=== PATIENT | female | born 1940 | race Caucasian/White ===

== ENCOUNTER 2017-06-26 07:45 | Observation (INO) | payer MEDICARE, OTHER ==
[2017-06-26 07:56] VITALS: BMI 25.0
--- NOTE | 2017-06-26 08:01 | PDOC ---
History of Present Illness - General Chief Complaint: Chest Pain Stated Complaint: R ARM PAIN Time Seen by Provider: 06/26/17 08:01 History Source: Patient - History of Present Illness Initial Comments: 06/26/17 08:22 76 year old female with a PMH of GERD, HTN, pre-diabetes and HLD presents to the ED c/o chest pain. Chest pain is substernal, pressure like, 5/10, intermittent lasting 2-3 minutes today and radiates down patient's R arm and started @ 5:30 this morning. Non-positional, non-pleuritic and is relieved by rest. Pain has been occurring intermittently since December 2016 and previously lasting between a few hours to 2 days. Patient presents to ED this morning because she had three episodes of increased severity, though shorter in duration. Associated shortness of breath, no lightheadedness/palpitations/ diaphoresis/nausea. Denies any h/o SCHULTZ or orthopnea however notes some h/o resolved L leg swelling last month. Recent h/o throat infection for which she is currently on Day 09/18 of Amoxicillin, and travel to [facility] (May 2017). Patient notes she takes Umu Aspirin for her high blood pressure and cannot recall the name of any other anti-hypertensive. As per EMR patient had stress testing in 12/2016 which showed apical filling defect, likely apical thinning and home medication is Lisinopril (10 mg). NKDA Surgical: denies Social: lifetime non-smoker, denies alcohol, denies recreational drugs PMD: Dr. Elmore Past History - Past Medical History Allergies/Adverse Reactions: Allergies Allergy/AdvReac Type Severity Reaction Status Date / Time No Known Allergies Allergy Verified 06/26/17 07:52 Home Medications: Ambulatory Orders Aspirin [ASA -] 81 mg PO DAILY 06/26/17 Esomeprazole Magnesium 20 mg PO DAILY 06/26/17 Ramipril 10 mg PO DAILY 06/26/17 COPD: No Diabetes: Yes GI Disorders: Yes HTN: Yes - Suicide/Smoking/Psychosocial Hx Smoking History: Never smoked Review of Systems - Review of Systems Constitutional: No: Chills, Fever HEENTM: No: Recent change in vision Respiratory: Yes: Shortness of Breath. No: Cough, Orthopnea, Wheezing Cardiac (ROS): Yes: Chest Pain, Lightheadedness. No: Palpitations, Syncope ABD/GI: No: Constipated, Diarrhea, Nausea, Vomiting : No: Burning, Dysuria *Physical Exam - Vital Signs Last Vital Signs Temp Pulse Resp BP Pulse Ox 98.4 F 82 17 152/81 99 06/26/17 07:52 06/26/17 07:52 06/26/17 07:52 06/26/17 07:52 06/26/17 07:52 - Physical Exam Comments: 06/26/17 18:11 GENERAL: Awake, alert, and fully oriented, in no acute distress HEAD: No signs of trauma EYES: PERRLA, EOMI, sclera anicteric, conjunctiva clear ENT: Auricles normal inspection, hearing grossly normal, nares patent, oropharynx clear without exudates. Moist mucosa NECK: Nontender, no stepoffs, Normal ROM, supple, no lymphadenopathy, JVD, or masses LUNGS: Breath sounds equal, clear to auscultation bilaterally. No wheezes, and no crackles HEART: Regular rate and rhythm, normal S1 and S2, no murmurs, rubs or gallops ABDOMEN: Soft, nontender, normoactive bowel sounds. No guarding, no rebound. No masses EXTREMITIES: Normal range of motion, no edema. No clubbing or cyanosis. No cords, erythema, or tenderness ED Treatment Course - LABORATORY CBC & Chemistry Diagram: 06/26/17 08:30 06/26/17 08:30 Medical Decision Making - Medical Decision Making 06/26/17 08:30 76 year old female with intermittent chest pain- intermittent for 6 months, no clear association to exertion however relieved by rest. H/o cardiac stress testing in 12/2016 with apical filling defect. VS unremarkable. Frontal diagnosis: r/o ACS, pulmonary embolism, angina, costochondritis. 06/26/17 08:46 ECG shows NSR HR 67, wiht TWI in V1,V2, aVL -- not c/w rhythm strip for chest pain. 06/26/17 09:04 Repeat ECG shows NSR HR 65 w/persistent TWI in V1,V2, aVL. 06/26/17 09:32 Troponin (-) x1, D-Dimer (-). Patient requires further cardiac evaluation including repeat echo. 06/26/17 09:32 Case d/w patient's PMD - agrees w/ POC including admission 06/26/17 09:39 Hospitalist paged for admission 06/26/17 10:47 Patient admitted to hospitalist for observation including cardiac evaluation. Patient and patient's son @ bedside counseled on POC. Will continue to monitor while in ED. *DC/Admit/Observation/Transfer Diagnosis at time of Disposition: Chest pain - Discharge Dispostion Condition at time of disposition: Fair Admit: Yes - Referrals - Patient Instructions - Post Discharge Activity
[2017-06-26 08:37] LABS: BASO % 0.8 % (0-2.0); EOS % 3.2 % (0-4.5); HEMATOCRIT 38.4 % (32.4-45.2); HEMOGLOBIN 12.5 GM/dL (10.7-15.3); LYMPH % 27.6 % (8-40); MCH 27.5 pg (25.7-33.7); MCHC 32.5 g/dl (32.0-36.0); MEAN CELL VOLUME 84.8 fl (80-96); MEAN PLT VOLUME 9.1 fl (7.5-11.1); MONO % 9.6 % (3.8-10.2); NEUT % 58.8 % (42.8-82.8); PLATELET COUNT 265 K/MM3 (134-434); RBC 4.53 M/mm3 (3.60-5.2); RDW 14.5 % (11.6-15.6); WHITE BLOOD COUNT 6.1 K/mm3 (4.0-10.0)
[2017-06-26 09:00] LABS: ALBUMIN 3.8 g/dl (3.4-5.0); ANION GAP 5 (8-16); BILIRUBIN,TOTAL 0.3 mg/dL (0.2-1.0); BLOOD UREA NITROGEN 14 mg/dL (7-18); CHLORIDE 108 mmol/L (98-107); CO2 28 mmol/L (21-32); CREATININE 0.7 mg/dL (0.55-1.02); GLUCOSE,RANDOM 155 mg/dL (74-106); POTASSIUM 4.2 mmol/L (3.5-5.1); SGOT/AST 16 U/L (15-37); SGPT/ALT 18 U/L (12-78); SODIUM 141 mmol/L (136-145); TOT PROT 7.4 g/dl (6.4-8.2)
[2017-06-26 09:03] LABS: ALK PHOS 77 U/L (45-117); N-TERMINAL BNP 296.91 pg/ml (5-450)
--- NOTE | 2017-06-26 09:03 | PDOC ---
Attending Attestation - Resident Resident Name: Rosa ElenaKendal - ED Attending Attestation I have performed the following: I have examined & evaluated the patient, The case was reviewed & discussed with the resident, I agree w/resident's findings & plan - HPI HPI: 06/26/17 08:58 76-year-old female with history of hypertension, diabetes, high cholesterol but very high functioning at baseline and very active presents with atypical chest pain since December, had 3 episodes this morning so she presents for evaluation. She was previously evaluated in December with nuclear stress test that was essentially normal, some apical filling defect consider to be apical thinning. She describes the pain as pressure-like, lasting minutes then resolving. Not necessarily exertional, she climbs a flight of stairs every day to her apartment without difficulty. No associated palpitations or cough or orthopnea. Recent travel to the [facility], returned last month, reports intermittent leg swelling question right worse than left. - Physicial Exam PE: 06/26/17 09:03 Vital signs normal Very well-appearing, asymptomatic at this time and at the time of EKG Exam is normal, puffy ankles but no pitting edema - Medical Decision Making 06/26/17 09:03 Patient seen and evaluated with the resident. I agree with the overall evaluation, assessment, and management with the following summary of visit: 76-year-old female with several risk factors for ACS presents with otherwise atypical chest pain ongoing for months, previously evaluated for this similar syndrome with nuclear stress test in December which was unremarkable. Today had 3 episodes which is new, and concerned her so she presents for evaluation. Stat EKG performed had some concerning T-wave inversions in V1 and V2, these were new compared to her stress test EKG from December. Again, she was asymptomatic during the EKG, and a stat repeat was unchanged. Overall atypical chest pain but with several risk factors for ACS and with possible EKG changes compared to December. No acute ST changes. Check labs including d-dimer EKG, chest x-ray We'll discuss with PCP, Dr. Elmore, likely observation. Heart Score/ECG Review #1 General ECG Interpretation: Sinus Rhythm, Normal Rate, Normal Intervals, No acute ischemic changes (TWI V1V2, AVL. no ST changes) Compared to previous ECG there are: Changes noted (c/w stress test EKG 12/26) #2 General ECG Interpretation: Sinus Rhythm, Normal Rate, Normal Intervals, No acute ischemic changes (unchanged TWi V1V2, AVL)
--- NOTE | 2017-06-26 14:08 | HP ---
CHIEF COMPLAINT:chest pain PCP:Unclear, Dr. Everett(listed on pt's insurance card) office does not have a record for this patient. [facility] has Dr. Pham as prescribing physician , Rx bottle for ramipril has Dr. Garcia as prescribing physician. Patient says she goes to [address] [place] [address] for care. HISTORY OF PRESENT ILLNESS: 76 yr old hebrew speaking woman with DM II, HTN, hx of gastritis presents with worsening intermittent chest pain for past 6 months. This morning she had two episodes where the pain was 10/10 lasting 5-10minutes while she was sitting, it was squeezing in nature, substernal, non radiating, it self-resolved. When she had these episodes initially in Dec 2016, she underwent a stress test( at [facility]) that was negative. EKG at that time was negative for twi. She also underwent an endoscopy and colonoscopy in January at [facility] that showed gastritis, negative for polyps/masses. No change in exercise tolerance, able to climb stairs and walk several blocks without difficulty. She fell 2 months ago when standing up from a sitting position and says she has swelling in her right ankle at times. ER course was notable for: (1) ekg with new twi (2) 1st trop negative (3)HBa1c 6.9 Recent Travel: [place] in March 2017 PAST MEDICAL HISTORY: HTN DM II, not on medications. [facility] has an rx for metformin that was never picked up PAST SURGICAL HISTORY: denies Social History: Smoking:denies Alcohol:denies Drugs: denies Family History: daughter with breast cancer dx'd age 55, mother with unknown heart disease requiring "machine" Allergies No Known Allergies Allergy (Verified 06/26/17 07:52) HOME MEDICATIONS: Home Medications Medication Instructions Recorded Aspirin [ASA -] 81 mg PO DAILY 06/26/17 Esomeprazole Magnesium 20 mg PO DAILY 06/26/17 Ramipril 10 mg PO DAILY 06/26/17 REVIEW OF SYSTEMS CONSTITUTIONAL: Present: intentional weight loss 5lbs in 3 months Absent: fever, chills, diaphoresis, generalized weakness, malaise, loss of appetite HEENT: Absent: rhinorrhea, nasal congestion, throat pain, throat swelling, difficulty swallowing, mouth swelling, visual changes CARDIOVASCULAR: Present:chest pain, Absent: syncope, palpitations, irregular heart rate, lightheadedness, peripheral edema RESPIRATORY: Absent: cough, shortness of breath, dyspnea with exertion, orthopnea, wheezing, stridor, hemoptysis GASTROINTESTINAL: Absent: abdominal pain, abdominal distension, nausea, vomiting, diarrhea, constipation, melena, hematochezia GENITOURINARY: Absent: dysuria, frequency, urgency, hesitancy, hematuria MUSCULOSKELETAL: Absent: myalgia, arthralgia, joint swelling, back pain, neck pain SKIN: Absent: rash, itching, pallor ENDOCRINE: Absent: unexplained weight gain, unexplained weight loss, heat intolerance, cold intolerance NEUROLOGIC: Present:dizziness intermittent lasting few seconds during chest pain Absent: headache, focal weakness or paresthesias, unsteady gait, seizure, mental status changes, bladder or bowel incontinence PHYSICAL EXAMINATION Vital Signs - 24 hr 06/26/17 06/26/17 06/26/17 07:52 08:31 13:08 Temperature 98.4 F Pulse Rate 82 72 Respiratory 17 18 Rate Blood Pressure 152/81 181/92 O2 Sat by Pulse 99 98 100 Oximetry (%) 06/26/17 13:59 Temperature 98.2 F Pulse Rate 89 Respiratory 18 Rate Blood Pressure 171/80 O2 Sat by Pulse Oximetry (%) GENERAL: Awake, alert, and fully oriented, in no acute distress. HEAD: Normal with no signs of trauma. EYES: Pupils equal, round and reactive to light, extraocular movements intact, sclera anicteric, conjunctiva clear. No lid lag. EARS, NOSE, THROAT: Ears normal, nares patent, oropharynx clear without exudates. Moist mucous membranes. NECK: Normal range of motion, supple without lymphadenopathy, JVD, or masses. LUNGS: Breath sounds equal, clear to auscultation bilaterally. No wheezes, and no crackles. No accessory muscle use. HEART: Regular rate and rhythm, normal S1 and S2 without murmur, rub or gallop. ABDOMEN: Soft, nontender, not distended, normoactive bowel sounds, no guarding, no rebound, no masses. No hepatomegaly or splenomegaly. MUSCULOSKELETAL: Normal range of motion at all joints. No bony deformities or tenderness. No CVA tenderness. UPPER EXTREMITIES: 2+ radial pulses, warm, well-perfused. No cyanosis. No clubbing. No peripheral edema. LOWER EXTREMITIES: 2+ pDP ulses, warm, well-perfused. No calf tenderness. No peripheral edema. NEUROLOGICAL: Cranial nerves II-XII intact. Normal speech. 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 PSYCHIATRIC: Cooperative. Good eye contact. Appropriate mood and affect. SKIN: Warm, dry, normal turgor, no rashes or lesions noted, normal capillary refill. Laboratory Results - last 24 hr 06/26/17 06/26/17 06/26/17 08:30 08:30 08:30 WBC 6.1 RBC 4.53 Hgb 12.5 Hct 38.4 MCV 84.8 MCH 27.5 MCHC 32.5 RDW 14.5 Plt Count 265 MPV 9.1 Neutrophils % 58.8 Lymphocytes % 27.6 Monocytes % 9.6 Eosinophils % 3.2 Basophils % 0.8 D-Dimer Sodium 141 Potassium 4.2 Chloride 108 H Carbon Dioxide 28 Anion Gap 5 L BUN 14 Creatinine 0.7 Creat Clearance w eGFR > 60 POC Glucometer Random Glucose 155 H Hemoglobin A1c % 6.9 H Calcium 9.0 Total Bilirubin 0.3 AST 16 ALT 18 Alkaline Phosphatase 77 Creatine Kinase 70 Troponin I < 0.02 B-Natriuretic Peptide 296.91 Total Protein 7.4 Albumin 3.8 06/26/17 06/26/17 09:00 09:31 WBC RBC Hgb Hct MCV MCH MCHC RDW Plt Count MPV Neutrophils % Lymphocytes % Monocytes % Eosinophils % Basophils % D-Dimer 391 Sodium Potassium Chloride Carbon Dioxide Anion Gap BUN Creatinine Creat Clearance w eGFR POC Glucometer 107.49467 Random Glucose Hemoglobin A1c % Calcium Total Bilirubin AST ALT Alkaline Phosphatase Creatine Kinase Troponin I B-Natriuretic Peptide Total Protein Albumin ASSESSMENT/PLAN: 76 yr old woman with HTN and DM II presents wth atypical chest pain placed on observation for further evaluation. #Atypical chest pain, heart score 4 -telemetry monitoring to r/o arrhythmia, repeat EKG in the morning to evaluate TWI -given continued chest pain that is now worsening and previous negative stress test, will request cardiology evaluation for risk stratification for repeat stress test or cardiac cath -trend troponins - ASA 81mg daily - consult: dr. Black #DM II - HBA1c 6.9% - BGM ACHS - NISS - defer oral hypoglycemics during hospitalization, may need rxs at discharge #HTN - uncontrolled - start home dose of ramipril 5mg po daily, may require titration up #Gastritis - continue nexium 20 mg po daily #DVT: lovenox 40subq #Diet: low Na/diabetic diet Visit type - Emergency Visit Emergency Visit: Yes ED Registration Date: 06/26/17 Care time: The patient presented to the Emergency Department on the above date and was hospitalized for further evaluation of their emergent condition. - New Patient This patient is new to me today: Yes Date on this admission: 06/26/17 - Critical Care Critical Care patient: No Hospitalist Screening - Colonoscopy Questionnaire Colonoscopy Questionnaire: Colonoscopy Questionnaire - Patient: 50 - 75 years old and never had a screening colonoscopy: Unknown History of colon or rectal polyps, or CA: Unknown History of IBD, Crohn's disease or UC: Unknown History of abdominal radiation therapy as a child: Unknown - Relative: 1 with colon or rectal CA, or polyps at age 60 or younger: Unknown Colon or rectal CA diagnosed at age 45 or younger: Unknown Multiple relatives with colon or rectal CA: Unknown - Outcome: Screening Result: Negative Screen
--- NOTE | 2017-06-26 14:47 | CON.CARD ---
Consult Consult Specialty:: Cardiology - History of Present Illness Chief Complaint: chest pain History of Present Illness: 76-year-old female with history of hypertension, diabetes, high cholesterol but very high functioning at baseline and very active presents with atypical chest pain since December, had 3 episodes this morning so she presents for evaluation. She was previously evaluated in December with nuclear stress test that was essentially normal, some apical filling defect consider to be apical thinning. She describes the pain as pressure-like, lasting minutes then resolving. Not necessarily exertional, she climbs a flight of stairs every day to her apartment without difficulty. No associated palpitations or cough or orthopnea. Recent travel to the [facility], returned last month, reports intermittent leg swelling question right worse than left. - Smoking History Smoking history: Never smoked Home Medications - Allergies Allergies/Adverse Reactions: Allergies Allergy/AdvReac Type Severity Reaction Status Date / Time No Known Allergies Allergy Verified 06/26/17 07:52 - Home Medications Home Medications: Ambulatory Orders Aspirin [ASA -] 81 mg PO DAILY 06/26/17 Esomeprazole Magnesium 20 mg PO DAILY 06/26/17 Ramipril 10 mg PO DAILY 06/26/17 Review of Systems - Review of Systems Constitutional: reports: No Symptoms Eyes: reports: No Symptoms HENT: reports: No Symptoms Neck: reports: No Symptoms Cardiovascular: reports: No Symptoms Gastrointestinal: reports: No Symptoms Genitourinary: reports: No Symptoms Breasts: reports: No Symptoms Reported Musculoskeletal: reports: No Symptoms Integumentary: reports: No Symptoms Neurological: reports: No Symptoms Endocrine: reports: No Symptoms Hematology/Lymphatic: reports: No Symptoms Psychiatric: reports: No Symptoms Vital Signs: Vital Signs Temperature 98.2 F 06/26/17 13:59 Pulse Rate 89 06/26/17 13:59 Respiratory Rate 18 06/26/17 13:59 Blood Pressure 171/80 06/26/17 13:59 O2 Sat by Pulse Oximetry (%) 100 06/26/17 13:08 Constitutional: Yes: Well Nourished, No Distress, Calm Eyes: Yes: WNL, Conjunctiva Clear, EOM Intact HENT: Yes: WNL, Atraumatic, Normocephalic Neck: Yes: WNL, Supple, Trachea Midline Respiratory: Yes: WNL, Regular, CTA Bilaterally Gastrointestinal: Yes: WNL, Normal Bowel Sounds Renal/: Yes: WNL Cardiovascular: Yes: WNL, Regular Rate and Rhythm Musculoskeletal: Yes: WNL Extremities: Yes: WNL Integumentary: Yes: WNL Neurological: Yes: WNL, Alert, Oriented ...Motor Strength: WNL Psychiatric: Yes: WNL, Alert, Oriented - Other Data Labs, Other Data: CBC, BMP 06/26/17 08:30 06/26/17 08:30 Troponin, BNP 06/26/17 08:30 Troponin I < 0.02 B-Natriuretic Peptide 296.91 Troponin, BNP 06/26/17 08:30 Troponin I < 0.02 B-Natriuretic Peptide 296.91 Imaging - Results Chest X-ray: Image Reviewed (nild elevation l diaphragm) EKG: Image Reviewed (sr nonspec rep abn) Problem List - Problems (1) Chest pain Code(s): R07.9 - CHEST PAIN, UNSPECIFIED Assessment/Plan cp sx neg mibi Dec 2015 htn hlp gerd plan r/o mi EST echo
[2017-06-26 15:21] LABS: CHOLESTEROL 154 mg/dL (50-200); HDL CHOLESTEROL 60 mg/dL (40-60); LDL CHOLESTEROL (ONLY SJRH) 83 mg/dL (5-100); TRIGLYCERIDES 85 mg/dL (35-160)
[2017-06-26] MEDS ORDERED: PATIENT'S OWN MEDICATION (NON-FORMULARY) (Ramipril [Ramipril] 10 MG) PO SCH (16:00)
[2017-06-26] MEDS ORDERED: RAMIPRIL 5 MG CAPSULE (FP) PO ONE (16:00)
--- NOTE | 2017-06-26 16:49 | EKG ---
Test Reason : Blood Pressure : / mmHG Vent. Rate : 065 BPM Atrial Rate : 065 BPM P-R Int : 182 ms QRS Dur : 088 ms QT Int : 408 ms P-R-T Axes : 046 -07 076 degrees QTc Int : 424 ms POOR DATA QUALITY, INTERPRETATION MAY BE ADVERSELY AFFECTED NORMAL SINUS RHYTHM MINIMAL VOLTAGE CRITERIA FOR LVH, MAY BE NORMAL VARIANT BORDERLINE ECG NO PREVIOUS ECGS AVAILABLE Confirmed by MD Lonnie, Remigio ([id number]) on 06/26/2017 4:48:59 PM Referred By: Confirmed By:Remigio Fleming MD
--- NOTE | 2017-06-26 18:33 | PN ---
Teaching Attending Note Name of Resident: Maeve Lanier ATTENDING PHYSICIAN STATEMENT I saw and evaluated the patient. I reviewed the resident's note and discussed the case with the resident. I agree with the resident's findings and plan as documented. SUBJECTIVE: This is a 76 year old woman with a history of HTN, type 2 DM, gastritis who comes to the ED complaining of chest pain on and off for 6 months. This morning she had two episodes which she describes as 10 out of 10, squeezing, substernal, and non-radiating. Each episode occurred at rest, lasted 5-10 minutes, and resolved spontaneously. She had a nuclear stress test in 2016 which showed a small apical defect thought to be apical thinning. OBJECTIVE: Vital Signs Period Temp Pulse Resp BP Sys/Duque Pulse Ox Last 24 Hr 98.2 F-98.4 F 72-89 16-18 152-181/80-92 98-100 HEART: S1S2, RRR LUNGS: Clear ABDOMEN: Soft, non-tender, non-distended, normal BS EXTREMITIES: No edema Laboratory Tests 06/26/17 06/26/17 06/26/17 07:00 08:30 08:30 WBC 6.1 RBC 4.53 Hgb 12.5 Hct 38.4 MCV 84.8 MCH 27.5 MCHC 32.5 RDW 14.5 Plt Count 265 MPV 9.1 Neutrophils % 58.8 Lymphocytes % 27.6 Monocytes % 9.6 Eosinophils % 3.2 Basophils % 0.8 D-Dimer Sodium 141 Potassium 4.2 Chloride 108 H Carbon Dioxide 28 Anion Gap 5 L BUN 14 Creatinine 0.7 Creat Clearance w eGFR > 60 POC Glucometer Random Glucose 155 H Hemoglobin A1c % Calcium 9.0 Total Bilirubin 0.3 AST 16 ALT 18 Alkaline Phosphatase 77 Creatine Kinase 70 Troponin I < 0.02 B-Natriuretic Peptide 296.91 Total Protein 7.4 Albumin 3.8 Triglycerides Cancelled 85 Cholesterol Cancelled 154 Total LDL Cholesterol Cancelled 83 HDL Cholesterol Cancelled 60 TSH Cancelled 1.71 06/26/17 06/26/17 06/26/17 08:30 09:00 09:31 WBC RBC Hgb Hct MCV MCH MCHC RDW Plt Count MPV Neutrophils % Lymphocytes % Monocytes % Eosinophils % Basophils % D-Dimer 391 Sodium Potassium Chloride Carbon Dioxide Anion Gap BUN Creatinine Creat Clearance w eGFR POC Glucometer 107.86046 Random Glucose Hemoglobin A1c % 6.9 H Calcium Total Bilirubin AST ALT Alkaline Phosphatase Creatine Kinase Troponin I B-Natriuretic Peptide Total Protein Albumin Triglycerides Cholesterol Total LDL Cholesterol HDL Cholesterol TSH 06/26/17 06/26/17 15:20 16:50 WBC RBC Hgb Hct MCV MCH MCHC RDW Plt Count MPV Neutrophils % Lymphocytes % Monocytes % Eosinophils % Basophils % D-Dimer Sodium Potassium Chloride Carbon Dioxide Anion Gap BUN Creatinine Creat Clearance w eGFR POC Glucometer 136 Random Glucose Hemoglobin A1c % Calcium Total Bilirubin AST ALT Alkaline Phosphatase Creatine Kinase 57 Troponin I < 0.02 B-Natriuretic Peptide Total Protein Albumin Triglycerides Cholesterol Total LDL Cholesterol HDL Cholesterol TSH Home Medications Medication Instructions Recorded Aspirin [ASA -] 81 mg PO DAILY 06/26/17 Esomeprazole Magnesium 20 mg PO DAILY 06/26/17 Ramipril 10 mg PO DAILY 06/26/17 ASSESSMENT AND PLAN: This is a 76 year old woman with a history of HTN, type 2 DM, gastritis who presented to the ED with chest pain on and off for 6 months. 1. Chest pain, atypical - Has T wave inversions on EKG, new since 12/2016 - Observe on telemetry - Continue aspirin - Serial troponins - Echocardiogram - Cardiology consult 2. HTN - Continue Altace 3. Type 2 DM - Fingersticks with Novolog sliding scale 4. Gastritis - Continue Nexium
[2017-06-26] MEDS: INSULIN SLIDING SCALE (NOVOLOG) 1 VIAL SQ SCH (22:26)
[2017-06-27] MEDS: INSULIN SLIDING SCALE (NOVOLOG) 1 VIAL SQ SCH ×4 (06:15→22:33)
[2017-06-27] MEDS: ENOXAPARIN NA (PORCINE) 40 MG/0.4 ML DISP.SYRIN SQ SCH (09:16)
[2017-06-27] MEDS: RAMIPRIL 5 MG CAPSULE (FP) PO SCH (09:17)
[2017-06-27] MEDS: ASPIRIN 81 MG CHEWABLE TABLETS PO SCH (09:17)
[2017-06-27] MEDS: PANTOPRAZOLE 20 MG TABLET (FP) PO SCH (09:17)
--- NOTE | 2017-06-27 09:29 | EKG ---
Test Reason : Blood Pressure : / mmHG Vent. Rate : 067 BPM Atrial Rate : 067 BPM P-R Int : 186 ms QRS Dur : 096 ms QT Int : 418 ms P-R-T Axes : 049 011 085 degrees QTc Int : 441 ms NORMAL SINUS RHYTHM NONSPECIFIC T WAVE ABNORMALITY ABNORMAL ECG NO PREVIOUS ECGS AVAILABLE Confirmed by ANNA MORENO, KENNA ([id number]) on 06/27/2017 9:29:44 AM Referred By: Confirmed By:KENNA CASTILLO MD
--- NOTE | 2017-06-27 10:58 | PN ---
Progress Note, Physician History of Present Illness: 76-year-old female with history of hypertension, diabetes, high cholesterol but very high functioning at baseline and very active presents with atypical chest pain since December, had 3 episodes this morning so she presents for evaluation. She was previously evaluated in December with nuclear stress test that was essentially normal, some apical filling defect consider to be apical thinning. She describes the pain as pressure-like, lasting minutes then resolving. Not necessarily exertional, she climbs a flight of stairs every day to her apartment without difficulty. No associated palpitations or cough or orthopnea. Recent travel to the [place], returned last month, reports intermittent leg swelling question right worse than left. - Current Medication List Current Medications: Active Medications Aspirin (Asa -) 81 mg PO DAILY [facility] Last Admin: 06/27/17 09:17 Dose: 81 mg Enoxaparin Sodium (Lovenox -) 40 mg SQ DAILY [facility] Last Admin: 06/27/17 09:16 Dose: 40 mg Insulin Aspart (Novolog Vial Sliding Scale -) 1 vial SQ ACHS [facility] PRN Reason: Protocol Last Admin: 06/27/17 06:15 Dose: Not Given Pantoprazole Sodium (Protonix -) 20 mg PO DAILY [facility] Last Admin: 06/27/17 09:17 Dose: 20 mg Ramipril (Altace -) 10 mg PO DAILY [facility] Last Admin: 06/27/17 09:17 Dose: 10 mg - Objective Vital Signs: Vital Signs Temperature 98 F 06/27/17 05:22 Pulse Rate 91 H 06/27/17 10:00 Respiratory Rate 20 06/27/17 10:19 Blood Pressure 109/73 06/27/17 10:00 O2 Sat by Pulse Oximetry (%) 98 06/27/17 10:19 Eyes: Yes: WNL, Conjunctiva Clear, EOM Intact HENT: Yes: WNL, Atraumatic, Normocephalic Neck: Yes: WNL, Supple, Trachea Midline Cardiovascular: Yes: WNL, Regular Rate and Rhythm Respiratory: Yes: WNL, Regular, CTA Bilaterally Gastrointestinal: Yes: WNL, Normal Bowel Sounds Genitourinary: Yes: WNL Musculoskeletal: Yes: WNL Extremities: Yes: WNL Edema: No Integumentary: Yes: WNL Neurological: Yes: WNL, Alert, Oriented ...Motor Strength: WNL Psychiatric: Yes: WNL Labs: CBC, BMP 06/26/17 08:30 06/26/17 08:30 Problem List - Problems (1) Chest pain Code(s): R07.9 - CHEST PAIN, UNSPECIFIED Assessment/Plan cp sx neg mibi Dec 2015 htn hlp dm gerd EST today nondiagnostic -would recommend EST MIBI plan keep ldl below 70 mg/dl asa EST MIBI
--- NOTE | 2017-06-27 11:44 | EKG ---
Test Reason : Blood Pressure : / mmHG Vent. Rate : 067 BPM Atrial Rate : 067 BPM P-R Int : 208 ms QRS Dur : 086 ms QT Int : 420 ms P-R-T Axes : 057 005 092 degrees QTc Int : 443 ms NORMAL SINUS RHYTHM T WAVE ABNORMALITY, CONSIDER ANTEROLATERAL ISCHEMIA ABNORMAL ECG WHEN COMPARED WITH ECG OF 26-JUN-2017 08:48, NO SIGNIFICANT CHANGE WAS FOUND Confirmed by ANNA MORENO, KENNA ([id number]) on 06/27/2017 11:44:25 AM Referred By: Julia DAVIS Confirmed By:KENNA CASTILLO MD
--- NOTE | 2017-06-27 13:19 | TRE ---
Protocol Name : AURE Max Work Load (METS*10) : 46 Time In Exercise Phase : 00:03:00 Max. Systolic BP : 180 mmHg Max Diastolic BP : 82 mmHg Max Heart Rate : 123 BPM Max Predicted Heart Rate : 143 BPM Attending Physician : DR. CASTILLO Reason For Termination : Target Heart Rate Achieved Reason for Test : CP Stress Protocol : AURE Rest HR : 90 BPM PeakEx METs : 4.6 METS Recovery ECG Response (OLD) : Diagnosis : TDS motion artifacts baseline EKG nsr no ischemic symptoms at peak exercise 1.[address] segments depressions in leads V4-V5 Nondiagnostic EST Recommend imaging stress tets Confirmed by ANNA MORENO, KENNA ([id number]) on 06/27/2017 1:18:55 PM
--- NOTE | 2017-06-27 15:58 | PN ---
Physical Exam: SUBJECTIVE: Patient seen and examined No acute events overnight. Patient denies any more chest pain. Had episodes of pvc/nsvt on monitor. OBJECTIVE: Vital Signs Period Temp Pulse Resp BP Sys/Duque Pulse Ox Last 24 Hr 97.7 F-98.9 F 65-91 18-20 109-177/70-80 98-98 GENERAL: Awake, alert, and fully oriented, in no acute distress. HEENT: Normal with no signs of trauma. Extraocular movements intact, sclera anicteric, conjunctiva clear. No lid lag. Oropharynx clear without exudates. Moist mucous membranes. NECK: Normal range of motion, supple without lymphadenopathy, JVD, or masses. LUNGS: Breath sounds equal, clear to auscultation bilaterally. No wheezes, and no crackles. No accessory muscle use. HEART: Regular rate and rhythm, normal S1 and S2 without murmur, rub or gallop. ABDOMEN: Soft, nontender, not distended, normoactive bowel sounds, no guarding, no rebound, no masses. No hepatomegaly or splenomegaly. MUSCULOSKELETAL: Normal range of motion at all joints. No bony deformities or tenderness. No CVA tenderness. UPPER EXTREMITIES: 2+ radial pulses, warm, well-perfused. No cyanosis. No clubbing. No peripheral edema. LOWER EXTREMITIES: 2+ DP ulses, warm, well-perfused. No calf tenderness. No peripheral edema. NEUROLOGICAL: Cranial nerves II-XII intact. Normal speech. facial symmetry, 5/ 5 b/l hand hat block maker, 5/5 biceps/triceps/shoulder/hip/knee extension and felxion, dorsi-plantar flexion. PSYCHIATRIC: Cooperative. Good eye contact. Appropriate mood and affect. SKIN: Warm, dry, normal turgor, no rashes or lesions noted, normal capillary refill. Laboratory Results - last 24 hr 06/26/17 06/26/17 06/26/17 15:20 16:50 21:19 POC Glucometer 136 150 Creatine Kinase 57 Troponin I < 0.02 06/26/17 06/27/17 06/27/17 22:00 05:35 11:14 POC Glucometer 116 155 Creatine Kinase 57 Troponin I < 0.02 Active Medications Generic Name Dose Route Start Last Admin Trade Name Freq PRN Reason Stop Dose Admin Aspirin 81 mg 06/27/17 10:00 06/27/17 09:17 Asa - PO 81 mg DAILY [facility] Administration Atorvastatin Calcium 10 mg 06/27/17 22:00 Lipitor - PO HS [facility] Enoxaparin Sodium 40 mg 06/27/17 10:00 06/27/17 09:16 Lovenox - SQ 40 mg DAILY [facility] Administration Insulin Aspart 1 vial 06/26/17 22:30 06/27/17 12:04 Novolog Vial Sliding Scale - SQ Not Given [facility] Protocol Pantoprazole Sodium 20 mg 06/27/17 10:00 06/27/17 09:17 Protonix - PO 20 mg DAILY [facility] Administration Ramipril 10 mg 06/27/17 10:00 06/27/17 09:17 Altace - PO 10 mg DAILY [facility] Administration ASSESSMENT/PLAN: 76 yr old f with HTN and type 2 DM presented with atypical chest pain presented for further evaluation #Atypical chest pain, heart score 4 -Continue telemetry monitoring -Trops x -3 -ASA 81 mg daily -Stress test nondiagnostic, recommend imaging stress test-- EST MIBI - consult: Dr. Black #DM II - HBA1c 6.9% - BGM ACHS - NISS ACHS - hold oral hypoglycemics, will restart metformin on d/c #HTN - uncontrolled - Continue Ramipril 10 mg po daily #HLD -Lipitor 10 mg po hs #Gastritis - continue protonix 20 mg po daily #FEN/GI -no ivf -wnl -low na/diabetic diet #DVT ppx: lovenox 40subq Visit type - Emergency Visit Emergency Visit: Yes ED Registration Date: 06/26/17 Care time: The patient presented to the Emergency Department on the above date and was hospitalized for further evaluation of their emergent condition. - New Patient This patient is new to me today: Yes Date on this admission: 06/27/17 - Critical Care Critical Care patient: No
--- NOTE | 2017-06-27 18:00 | PN ---
Teaching Attending Note Name of Resident: Rishi Laguna ATTENDING PHYSICIAN STATEMENT I saw and evaluated the patient. I reviewed the resident's note and discussed the case with the resident. I agree with the resident's findings and plan as documented. SUBJECTIVE: no fever or chills , denies any abd pain . recurrent CP in house ( seconds to min ) even at rest. vague description of her sx . OBJECTIVE: NAD CV: RRR, NO JVD Lungs: CTAB Ext: no edema ASSESSMENT AND PLAN: 76 y/o lady with h/o HTN, Dm , gastritis , and other medical problems who presented with CP 1- CP: r/o angina due to her risk factors . EKG reviewed. EST not diagnostic - nuclear stress in am - tele reviewed . PVCs - statin added as LDL 83 . 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
[2017-06-27] MEDS ORDERED: ATORVASTATIN CA 10 MG TABLET (FP) PO SCH (22:00)
[2017-06-28] MEDS: INSULIN SLIDING SCALE (NOVOLOG) 1 VIAL SQ SCH ×2 (06:39→13:01)
--- NOTE | 2017-06-28 10:06 | PN ---
Progress Note, Physician History of Present Illness: 76-year-old female with history of hypertension, diabetes, high cholesterol but very high functioning at baseline and very active presents with atypical chest pain since December, had 3 episodes this morning so she presents for evaluation. She was previously evaluated in December with nuclear stress test that was essentially normal, some apical filling defect consider to be apical thinning. She describes the pain as pressure-like, lasting minutes then resolving. Not necessarily exertional, she climbs a flight of stairs every day to her apartment without difficulty. No associated palpitations or cough or orthopnea. Recent travel to the [place], returned last month, reports intermittent leg swelling question right worse than left. - Current Medication List Current Medications: Active Medications Aspirin (Asa -) 81 mg PO DAILY [facility] Last Admin: 06/27/17 09:17 Dose: 81 mg Atorvastatin Calcium (Lipitor -) 10 mg PO HS [facility] Last Admin: 06/27/17 22:33 Dose: 10 mg Enoxaparin Sodium (Lovenox -) 40 mg SQ DAILY [facility] Last Admin: 06/27/17 09:16 Dose: 40 mg Insulin Aspart (Novolog Vial Sliding Scale -) 1 vial SQ [facility] PRN Reason: Protocol Last Admin: 06/28/17 06:39 Dose: Not Given Pantoprazole Sodium (Protonix -) 20 mg PO DAILY [facility] Last Admin: 06/27/17 09:17 Dose: 20 mg Ramipril (Altace -) 10 mg PO DAILY [facility] Last Admin: 06/27/17 09:17 Dose: 10 mg - Objective Vital Signs: Vital Signs Temperature 98.3 F 06/28/17 05:00 Pulse Rate 63 06/28/17 05:00 Respiratory Rate 20 06/28/17 05:00 Blood Pressure 154/70 06/28/17 05:00 O2 Sat by Pulse Oximetry (%) 98 06/28/17 02:00 Eyes: Yes: WNL, Conjunctiva Clear, EOM Intact HENT: Yes: WNL, Atraumatic, Normocephalic Neck: Yes: WNL, Supple, Trachea Midline Cardiovascular: Yes: WNL, Regular Rate and Rhythm Respiratory: Yes: WNL, Regular, CTA Bilaterally Gastrointestinal: Yes: WNL, Normal Bowel Sounds Genitourinary: Yes: WNL Musculoskeletal: Yes: WNL Extremities: Yes: WNL Edema: No Integumentary: Yes: WNL Neurological: Yes: WNL, Alert, Oriented ...Motor Strength: WNL Psychiatric: Yes: WNL Labs: CBC, BMP 06/26/17 08:30 06/26/17 08:30 Problem List - Problems (1) Chest pain Code(s): R07.9 - CHEST PAIN, UNSPECIFIED Assessment/Plan cp sx neg mibi Dec 2015 htn hlp dm gerd EST today nondiagnostic -would recommend EST MIBI plan keep ldl below 70 mg/dl asa awaiting EST MIBI
[2017-06-28] MEDS: ASPIRIN 81 MG CHEWABLE TABLETS PO SCH (10:50)
[2017-06-28] MEDS: ENOXAPARIN NA (PORCINE) 40 MG/0.4 ML DISP.SYRIN SQ SCH (10:50)
[2017-06-28] MEDS: PANTOPRAZOLE 20 MG TABLET (FP) PO SCH (10:50)
[2017-06-28] MEDS: RAMIPRIL 5 MG CAPSULE (FP) PO SCH (10:50)
--- NOTE | 2017-06-28 14:44 | PN ---
Teaching Attending Note Name of Resident: Rishi Laguna ATTENDING PHYSICIAN STATEMENT I saw and evaluated the patient. I reviewed the resident's note and discussed the case with the resident. I agree with the resident's findings and plan as documented. SUBJECTIVE: no fever or chills , cont to have intermittent cp that lasts fro 5-10 min . OBJECTIVE: NAD CV: RRR, NO JVD Lungs: CTAB Ext: no edema ASSESSMENT AND PLAN: 76 y/o lady with h/o HTN, Dm , gastritis , and other medical problems who presented with CP 1- CP: unclear etiology. nuclear stres neg . - tele reviewed . PVCs - pt admitted to not using her statin at home. 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 refer to resident clinic dc home , d/w her and her son with the help of OSMANI Walsh for Armenian translation
[2017-06-28 15:01] VITALS: BP 128/71; PULSE 90; TEMP 97.4
--- NOTE | 2017-06-28 15:43 | DS ---
Physical Exam: Selected Entries 06/28/17 06/28/17 10:00 15:00 Temperature 97.4 F L Pulse Rate 90 Respiratory 18 Rate Blood Pressure 128/71 O2 Sat by Pulse 98 Oximetry (%) Oxygen Delivery Room Air Method Laboratory Tests 06/26/17 06/26/17 06/26/17 08:30 08:30 08:30 WBC 6.1 Hgb 12.5 Hct 38.4 Plt Count 265 D-Dimer Sodium 141 Potassium 4.2 Chloride 108 H Carbon Dioxide 28 Anion Gap 5 L BUN 14 Creatinine 0.7 Random Glucose 155 H Hemoglobin A1c % 6.9 H Creatine Kinase Troponin I Triglycerides 85 Cholesterol 154 TSH 1.71 06/26/17 06/26/17 06/26/17 09:00 15:20 22:00 WBC Hgb Hct Plt Count D-Dimer 391 Sodium Potassium Chloride Carbon Dioxide Anion Gap BUN Creatinine Random Glucose Hemoglobin A1c % Creatine Kinase 57 Troponin I < 0.02 < 0.02 Triglycerides Cholesterol TSH 06/26 ekg- NSR 06/27 Exercise stress test- tds motion artifcats, no ischemic sx, st segments depresion in v4-v5, non diagnostic recommend imaging stress test 06/27 Echo - Impaired lv relaxation, ef 65%, otherwise no abnormalities 06/27 nuclear perfusion scan - no ischemia, normal lvef HOSPITAL COURSE: Date of Admission:06/26/17 Date of Discharge: 06/28/17 76 yr old guatemalan speaking woman with DM II, HTN, hx of gastritis presents with worsening intermittent chest pain for past 6 months admitted for atypical chest pain/ R.o acs. Patients trops were negative x 3. She underwent exercise/nuclear stress test (results above). Patient will f/u with pcp and pumpman within 1 week. Patient started on lipitor 10, metformin 500 mg, and her ramipril increased to 10 mg from 5 mg while in hospital. She will continue her home dose of aspirin and nexium. Minutes to complete discharge: 36 Discharge Summary Reason For Visit: ACUTE ELECTROCARDIOGRAPHY CHANGES Current Active Problems Chest pain (Acute) Diabetes mellitus (Chronic) Gastritis (Chronic) HLD (hyperlipidemia) (Chronic) Hypertension (Chronic) Condition: Stable - Instructions Diet, Activity, Other Instructions: You were evaluated for your chest pain. You underwent a nuclear stress test today, which was normal. You have been prescribed new medications to take: Lipitor 10mg 1 tablet at night for your cholesterol Metformin 500mg 1 tablet in the morning for your diabetes In addition we have increased your Ramipril to 10mg 1 tablet every day You should continue taking aspirin 81mg 1 tablet daily for your heart and nexium for your gastritis Please follow-up with the resident clinic (Dr. Phillips) and pumpman (Dr. Jean-Baptiste) within one week for post-hospital discharge. Information for both physicians have been provided, please call for an appointment. If you develop worsening chest pain, trouble breathing or any new symptoms please return to the hospital immediately. Referrals: Shayne Black MD [Staff Physician] - 1 Week Bright Phillips MD [Staff Physician] - 1 Week Disposition: HOME - Home Medications Comprehensive Discharge Medication List: Ambulatory Orders Aspirin [ASA -] 81 mg PO DAILY 06/26/17 Esomeprazole Magnesium 20 mg PO DAILY 06/26/17 Atorvastatin Ca [Lipitor] 10 mg PO HS #30 tablet 06/28/17 Metformin HCl 500 mg PO DAILY #30 tablet 06/28/17 Ramipril 10 mg PO DAILY #30 capsule 06/28/17 This patient is new to me today: No Emergency Visit: Yes ED Registration Date: 06/26/17 Care time: The patient presented to the Emergency Department on the above date and was hospitalized for further evaluation of their emergent condition. Critical Care patient: No - Discharge Referral Referred to [facility] No
== END 2017-06-28 16:43 | disposition home or self-care (01) ==
LOC: JER 07:45 → UNDOADMOB 10:38 → JERBED 10:38 → J4W 13:42 → OBSVTOIN 13:59 → JERBED 13:59 → INTOOBSV 13:59
PROVIDERS: ADMIT Internal Medicine; ATTEND Internal Medicine
DX: R07.89 Other chest pain (principal); I10 Essential (primary) hypertension; E78.5 Hyperlipidemia, unspecified; E11.9 Type 2 diabetes mellitus without complications; K21.9 Gastro-esophageal reflux disease without esophagitis; Z79.82 Long term (current) use of aspirin; K29.70 Gastritis, unspecified, without bleeding
CPT/HCPCS: 36415; 71045-TC-FY; 78452-TC; 80053; 80061; 82550; 82962; 83036; 83721; 83880; 84443; 84484; 85025; 85379; 93005; 93010; 93017; 93018; 93306-TC; 99284-25; A9502; G0378

== ENCOUNTER 2018-06-28 08:30 | Emergency (ER) | payer OTHER ==
[2018-06-28 08:46] VITALS: BP 140/70; PULSE 82; TEMP 98.7; BMI 25.0
--- NOTE | 2018-06-28 08:50 | PDOC ---
History of Present Illness - General Chief Complaint: Pain, Acute Stated Complaint: CHEST PAIN Time Seen by Provider: 06/28/18 08:49 - History of Present Illness Initial Comments: 77yo F with PMH of DM, HTN, HLD, cholelithiasis, GI ulcer, gastritis presenting with epigastric and chest pain. Patient states she has had these pains intermittently for the past several years. Her chest pain is associated with cholelithiasis and her epigastric pain is associated with her ulcer. Both were diagnosed within the past year in the [place] She opted not to have gallbladder surgery in the as family members preferred to have this procedure in the [place]. Patient presents to the ED today because her pains have worsened over the past day or two, now rated 10/10. She has taken her ulcer medicine (protonix and sucralfate) at home with relief of pain. Last bowel movement was this morning and was a normal formed brown stool without blood. No nausea or vomiting. Denies history of abdominal surgery. The chest pain is intermittent and non-radiating. Patient denies personal or family history of GA. She is a lifetime nonsmoker. Patient reports dysuria, but no frequency or hematuria. No fevers or chills. Per chart review, patient was admitted in June 2017 and had negative stress test, ECHO with impaired LV relaxation and 65% ejection fraction, and non- ischemic nuclear perfusion scan. PCP: Dr. Phillips Videotape Operator: Dr. Black Past History - Past Medical History Allergies/Adverse Reactions: Allergies Allergy/AdvReac Type Severity Reaction Status Date / Time No Known Allergies Allergy Verified 06/26/17 07:52 Home Medications: Ambulatory Orders Aspirin [ASA -] 81 mg PO DAILY 06/26/17 Esomeprazole Magnesium 20 mg PO DAILY 06/26/17 Atorvastatin Ca [Lipitor] 10 mg PO HS #30 tablet 06/28/17 Ramipril 10 mg PO DAILY #30 capsule 06/28/17 metFORMIN HCL [Metformin HCl] 500 mg PO DAILY #30 tablet 06/28/17 Omeprazole Magnesium [Prilosec Otc] 20 mg PO DAILY #30 tablet. 07/09/17 Famotidine [Pepcid] 20 mg PO BID PRN #30 tablet 06/28/18 Mag Hydrox/Al Hydrox/Simeth [Mylanta Suspension -] 30 ml PO Q6H PRN #1 bottle COPD: No Diabetes: Yes (NIDM) GI Disorders: Yes HTN: Yes - Immunization History Immunization Up to Date: Yes - Suicide/Smoking/Psychosocial Hx Smoking History: Never smoked Hx Alcohol Use: No Drug/Substance Use Hx: No Review of Systems - Review of Systems Comments:: Constitutional: no fever, no chills HEENT: no throat pain, no dysphagia Cardiovascular: +chest pain, no palpitations Respiratory: no cough, no shortness of breath Gastrointestinal: +abdominal pain, no nausea Genitourinary: +dysuria, no hematuria Musculoskeletal: no myalgia, no arthralgia Skin: no rash, no itching Neurologic: no headache, no weakness *Physical Exam - Vital Signs Last Vital Signs Temp Pulse Resp BP Pulse Ox 98.7 F 82 17 140/70 100 06/28/18 08:42 06/28/18 08:42 06/28/18 08:42 06/28/18 08:42 06/28/18 08:42 - Physical Exam Comments: General: Awake, alert, and fully oriented, in no acute distress Head: No signs of trauma Eyes: EOMI, sclera anicteric ENT: Moist mucus membranes Neck: Normal ROM, supple Lungs: Lungs clear, Normal breath sounds Cardio: Regular rhythm, S1 and S2 present Abdomen: Tender to palpation diffusely, most focal to epigastrium. Soft, nondistended. No guarding, no rebound, no masses Extremities: Normal range of motion, Distal pulses present SKIN: Warm, Dry, normal turgor Neurologic: Cranial nerves II through XII grossly intact. Normal speech ED Treatment Course - LABORATORY CBC & Chemistry Diagram: 06/28/18 09:38 06/28/18 09:38 Medical Decision Making - Medical Decision Making 77yo F with PMH of DM, HTN, HLD, cholelithiasis, GI ulcer, gastritis presenting with epigastric and chest pain. DDX including but not limited to ACS, PE, PNA, AAA, MSK, Psych DDX including but not limited to cholecystitis, pancreatitis, gastritis, gastroenteritis CBC, CMP, Lipase, UA, UCx, Tpn EKG, CXR Abdominal ultrasound Patient endorses no pain at this time 06/28/18 12:22 No anemia or luekocytosis UA negative for infection Electrolytes unremarkable First tpn <0.02 Lipase is low EKG: rate 76, QTc 434, NSR, twi in V2 present in previous EKG CXR: "A single view of the chest reveals slight rotation to the left with clear lungs, weak inspiration, normal mediastinum and sharp angles. The bones and soft tissues are intact. There are no prior studies for comparison. Impression: Rotation left. No acute chest pathology. Weak inspiration. " Second tpn ordered 06/28/18 14:28 US: "The liver measures 11.3 cm in sagittal length with a slightly dense and coarse echotexture. The gallbladder is adequately distended with an intraluminal stone measuring 1.3 cm and without wall thickening or pericholecystic free fluid. No intra or extrahepatic bile duct dilatation is seen. The right and left kidney measured 10.2 and 7 cm , respectively. Both kidneys appear unremarkable. The spleen measures 6.6 cm in sagittal length with homogeneous echotexture. Visualized portion of the pancreas appears unremarkable. The proximal, mid and distal abdominal aorta measured 0.4, 2 and 1.6 cm in AP dimension, respectively with normal color Doppler flow. Visualized portion of the inferior vena cava appears unremarkable. Normal flow in the main portal vein. IMPRESSION: Slightly coarse and dense echotexture of the liver suggestive of mild fatty infiltration Gallstone measuring 1.3 cm without sonographic evidence of acute cholecystitis. Both kidneys appear unremarkable. Normal size abdominal aorta without evidence of aneurysmal" 06/28/18 15:17 High suspicion that patient's symptoms can be attributed to her gastritis/ ulcer. GI referral for her gallstone, gastritis/ulcer as her provider was in the [facility] [place] Second tpn <0.02 Plan to discharge 06/28/18 15:21 *DC/Admit/Observation/Transfer Diagnosis at time of Disposition: Epigastric pain - Discharge Dispostion Disposition: HOME Condition at time of disposition: Improved - Prescriptions Prescriptions: Famotidine [Pepcid] 20 mg PO BID PRN #30 tablet PRN Reason: abdominal pain Mag Hydrox/Al Hydrox/Simeth [Mylanta Suspension -] 30 ml PO Q6H PRN #1 bottle PRN Reason: abdominal pain - Referrals Referrals: [facility] [place] [Provider Group] Shayne Black MD [Staff Physician] - Gabriela Mckenzie MD [Staff Physician] - - Patient Instructions Printed Discharge Instructions: DI for Epigastric Pain Additional Instructions: You came into the ED for abdominal pain. Labs and Ultrasound imaging were within normal limits. Follow-up with your primary care doctor this week to discuss this ED visit and to further evaluate your symptoms. Also follow-up with your circulation analyst this week to discuss this ED visit and to further evaluate your symptoms. Your workup is not complete until you do so. We have referred you to a GI specialist. Call the number provided to make an appointment. Prescriptions for your abdominal pain sent to your pharmacy. Take as instructed. You can also take [id number]-[id number] tylenol for pain. Follow the instructions on the medication bottle. Immediate medical attention is required if you have: you develop worsening pain , high fevers, persistent nausea, vomiting, or any new or concerning symptoms. If you think you are having an emergency, call for emergency medical services or present to the emergency department right away. ==== Entraste en el servicio de urgencias por dolor abdominal. Los laboratorios y las imgenes de ultrasonido estaban dentro de los lmites normales. Keron un seguimiento con martin mdico de atencin primaria esta semana para hablar sobre esta visita al DE y para evaluar ms a fondo elzbieta sntomas. Tony keron un seguimiento con martin cardilogo esta semana para discutir esta visita al ED y para evaluar ms a fondo elzbieta sntomas. Martin preparacin no est completa hasta que lo keron. Te hemos referido a un especialista en IG. Llame al nmero proporcionado para hacer agustin param. Recetas para martin dolor abdominal enviadas a martin farmacia. Celso segn las instrucciones. Tony puede celso tylenol de venta beny para el dolor. Siga las instrucciones en el envase del medicamento. Se requiere atencin mdica inmediata si: tiene un dolor que empeora, fiebre malachi, nuseas persistentes, vmitos o cualquier sntoma nuevo o relacionado con ellos. Si tera que tiene agustin emergencia, llame para solicitar servicios mdicos de emergencia o presente al departamento de emergencias de inmediato. - Post Discharge Activity
--- NOTE | 2018-06-28 09:38 | PDOC ---
Attending Attestation - Resident Resident Name: Albertina Sarkar - ED Attending Attestation I have performed the following: I have examined & evaluated the patient, The case was reviewed & discussed with the resident, I agree w/resident's findings & plan, Exceptions are as noted - HPI HPI: 06/28/18 09:36 77y F hx of htn, hl, gastritis (?PUD), gallstones presents with substernal chest pain/epgiastric pain intermittently for th epast several years but has gotten worse the past 1-2 days. Pt notes her epgiastric pain is constant, but it is her chest pain that is concerning to her as she gets it intermittently, lasting ~10-20 minutes before resolving, radiates to the back and is associated with some sob without associated n/v, diaphorsis. This pain is random, not associated with exertion nor does it seem to have any association with time ( gets it during daytime and at night). No associated worsening with food intake. Pt denies any radiation to the extremities nor any numbness/tingling/ weakness. Denies any diarrhea, bpr, melena, dysuria. - Physicial Exam PE: 06/28/18 10:13 GENERAL: The patient is awake, alert, and fully oriented, Nontoxic - in no acute distress. HEAD: Normocephalic, atraumatic. EYES: extraocular movements intact, sclera anicteric, conjunctiva clear. ENT: Normal voice, Moist mucous membranes. NECK: Normal range of motion, supple LUNGS: Breath sounds equal, clear to auscultation bilaterally. No wheezes, no rhonchi, no rales. HEART: Regular rate and rhythm, normal S1 and S2 without murmur, rub or gallop. ABDOMEN: Soft, nontender, faint pulsatations on deep palpble in abodmen EXTREMITIES: Normal range of motion, no edema. No clubbing or cyanosis. No cords, erythema, or tenderness. NEUROLOGICAL: No facial assymetry, Normal speech, PSYCH: Normal mood, normal affect. SKIN: Warm, Dry, normal turgor, - Medical Decision Making 06/28/18 10:18 ddx - gastiritis, pancreatitis, gall stones, consider acs, AAA will ck lbs, Abd US for gb and AAA meds or sypmtomatic relief ekg to screen for acs will reasessss 06/28/18 14:20 pt feeeling improved including trop neg x 2 labs rviewed US neg for acute pathology no signs of AAA suspect gastritis will dc the pt to fu wt GI return precautions were discussed Heart Score/ECG Review - ECG Impressions Comment:: 06/28/18 10:17 Twelve-lead EKG was performed and reviewed by me. There is normal sinus rhythm with a normal rate. Rate of 76 The axis is normal. TWI in avl twi in v1-v2 may be normal variant/lead placement
[2018-06-28 09:49] LABS: EOS % 3.1 % (0-4.5); HEMOGLOBIN 12.6 GM/dL (10.7-15.3); LYMPH % 22.4 % (8-40); MCH 27.9 pg (25.7-33.7); MCHC 32.3 g/dl (32.0-36.0); MEAN CELL VOLUME 86.5 fl (80-96); MEAN PLT VOLUME 8.7 fl (7.5-11.1); MONO % 8.5 % (3.8-10.2); PLATELET COUNT 234 K/MM3 (134-434); RBC 4.52 M/mm3 (3.60-5.2)
[2018-06-28] MEDS ORDERED: ACETAMINOPHEN 1000 MG/100 ML VIAL (NON FORMULARY) IVPB ONE (09:55)
[2018-06-28] MEDS ORDERED: FAMOTIDINE 20 MG/50 ML IVPB 20 MG/50 ML MG IVPB ONE ×2 (09:55→09:58)
[2018-06-28] MEDS ORDERED: MAG HYDROX/AL HYDROX/SIMETH -MYLANTA- ORAL SUSPENSION PO ONE (09:55)
[2018-06-28] MEDS ORDERED: ACETAMINOPHEN INJECTION 100 ML IVPB ONE (09:58)
[2018-06-28] MEDS ORDERED: MAG HYDROX/AL HYDROX/SIMETH 30 ML UNIT-DOSE CUP ONE (09:58)
[2018-06-28 10:07] LABS: INR 1.07 (0.83-1.09); PROTHROMBIN TIME (PATIENT) 12.6 SEC (9.7-13.0)
[2018-06-28 10:17] LABS: ALBUMIN 3.6 g/dl (3.4-5.0); ALK PHOS 79 U/L (45-117); ANION GAP 4 MMOL/L (8-16); BILIRUBIN,TOTAL 0.2 mg/dL (0.2-1); BLOOD UREA NITROGEN 18 mg/dL (7-18); CALCIUM 9.3 mg/dL (8.5-10.1); CHLORIDE 107 mmol/L (98-107); CO2 30 mmol/L (21-32); CREATININE 0.8 mg/dL (0.55-1.3); GLUCOSE,RANDOM 170 mg/dL (74-106); LIPASE 64 U/L (73-393); POTASSIUM 4.6 mmol/L (3.5-5.1); SGOT/AST 18 U/L (15-37); SGPT/ALT 18 U/L (13-61); SODIUM 141 mmol/L (136-145)
[2018-06-28 13:06] LABS: URINE APPEARANCE CLEAR; URINE BILIRUBIN NEGATIVE (NEGATIVE); URINE COLOR YELLOW; URINE GLUCOSE (UA) NEGATIVE (NEGATIVE); URINE KETONE NEGATIVE (NEGATIVE); URINE LEUK ESTERASE NEGATIVE (NEGATIVE); URINE NITRITE NEGATIVE (NEGATIVE); URINE PROTEIN NEGATIVE (NEGATIVE); URINE UROBILINOGEN 0.2 mg/dL (0.2-1.0)
--- NOTE | 2018-06-29 14:24 | EKG ---
Test Reason : Blood Pressure : / mmHG Vent. Rate : 076 BPM Atrial Rate : 076 BPM P-R Int : 176 ms QRS Dur : 082 ms QT Int : 386 ms P-R-T Axes : 040 001 087 degrees QTc Int : 434 ms POOR DATA QUALITY, INTERPRETATION MAY BE ADVERSELY AFFECTED NORMAL SINUS RHYTHM T WAVE ABNORMALITY, CONSIDER ANTERIOR ISCHEMIA ABNORMAL ECG Confirmed by MD FLOWER, ELEONORA ([id number]) on 06/29/2018 2:24:10 PM Referred By: Confirmed By:ELEONORA CRENSHAW MD
== END 2018-06-28 16:14 | disposition home or self-care (01) ==
LOC: JER 08:30
PROC: 3E033GC Introduction of Other Therapeutic Substance into Peripheral Vein, Percutaneous Approach (ICD-10-PCS; principal; 2018-06-28)
PROC: 3E033NZ Introduction of Analgesics, Hypnotics, Sedatives into Peripheral Vein, Percutaneous Approach (ICD-10-PCS; 2018-06-28)
DX: R10.13 Epigastric pain (principal); I10 Essential (primary) hypertension; E78.5 Hyperlipidemia, unspecified; E11.9 Type 2 diabetes mellitus without complications; Z79.84 Long term (current) use of oral hypoglycemic drugs; Z87.19 Personal history of other diseases of the digestive system
CPT/HCPCS: 36415; 71045-TC-FY; 76700-TC; 80053; 81003; 82550; 83690; 84484; 85025; 85610; 85730; 86850; 86900; 86901; 87086; 93005; 93010; 96365; 96375; 99281-25; J0131